=== PATIENT | female | born 1930 | race Caucasian/White ===

== ENCOUNTER → 2017-01-16 | Outpatient (REF) | payer MEDICARE ==
[~2017-01-16] MED LIST: ASPI1TAB PO; ATEN25TA PO; HYDR25TAB PO; VITA-121 PO
[2017-01-16 12:30] LABS: ALBUMIN 3.6 GM/DL (3.2-5.2); ALBUMIN/GLOBULIN RATIO 0.97 (1.00-1.93); BILIRUBIN,TOTAL 0.6 MG/DL (0.2-1.0); CALCIUM LEVEL 9.1 MG/DL (8.8-10.2); CREATININE FOR GFR 0.96 MG/DL (0.55-1.02); GLOMERULAR FILTRATION RATE 58.8 (>32); POTASSIUM SERUM 3.8 MEQ/L (3.5-5.1); TOTAL PROTEIN 7.3 GM/DL (6.4-8.2)
== END ==
LOC: M SFHCPLAZ 11:11
PROVIDERS: ATTEND Internal Medicine
DX: I10 Essential (primary) hypertension (principal); Z11.1 Encounter for screening for respiratory tuberculosis; E78.00 Pure hypercholesterolemia, unspecified

== ENCOUNTER → 2017-07-22 | Outpatient (REF) | payer MEDICARE ==
[2017-07-22 12:26] LABS: ALBUMIN 3.4 GM/DL (3.2-5.2); ALBUMIN/GLOBULIN RATIO 1.1 (1.00-1.93); BILIRUBIN,TOTAL 0.5 MG/DL (0.2-1.0); CALCIUM LEVEL 8.9 MG/DL (8.8-10.2); CREATININE FOR GFR 1.04 MG/DL (0.55-1.02); GLOMERULAR FILTRATION RATE 53.5 (>32); MAGNESIUM LEVEL 2.3 MG/DL (1.8-2.4); POTASSIUM SERUM 3.8 MEQ/L (3.5-5.1); TOTAL PROTEIN 6.5 GM/DL (6.4-8.2)
[2017-07-22 12:50] LABS: MEAN CORPUSCULAR HEMOGLOBIN 30.4 pg (27.0-33.0); MEAN CORPUSCULAR HGB CONC 32.6 g/dl (32.0-36.5); MEAN CORPUSCULAR VOLUME 93.3 fl (80.0-96.0); RED CELL DISTRIBUTION WIDTH 13.3 % (11.5-14.5); WHITE BLOOD COUNT 7.2 K/mm3 (4.0-10.0)
== END ==
LOC: M LABDRAW1 11:16
PROVIDERS: ATTEND Internal Medicine
DX: Z51.81 Encounter for therapeutic drug level monitoring (principal); Z79.899 Other long term (current) drug therapy; I10 Essential (primary) hypertension; M85.80 Other specified disorders of bone density and structure, unspecified site

== ENCOUNTER 2017-10-15 10:36 | Day surgery (SDC) | payer MEDICARE, MEDICAID ==
[~2017-10-15] VITALS: Ht 157.5 cm; Wt 62.5 kg
[~2017-10-15 10:36] MED LIST changes: -ATOR1TAB19 PO; -OCUVTAB4 PO
[2017-10-15] MEDS ORDERED: ATOR1TAB19 PO (10:51)
[2017-10-15] MEDS ORDERED: OCUVTAB4 PO (10:51)
[2017-10-15] MEDS ORDERED: fentaNYL 100 MCG/2 ML INJECTION (J3010) As Ordered ONE (17:27)
[2017-10-15] MEDS ORDERED: LIDOCAINE 2% INJ 100 MG/5 ML SDV (FOR ANES.) As Ordered ONE (17:27)
[2017-10-15] MEDS ORDERED: SUCCINYLCHOLINE 100 MG/5 ML SYRINGE (J0330) As Ordered ONE (17:27)
[2017-10-15] MEDS ORDERED: ONDANSETRON 4MG/2ML VIAL (J2405) As Ordered ONE (18:00)
[2017-10-15 20:30] VITALS: BP 138/65
--- NOTE | 2017-10-16 09:18 | ROOR ---
Patient Name: Stephanie Oneil Procedure Date: 10/15/2017 5:26 PM Date of : 1930 Age: 87 Gender: Female Note Status: Finalized Procedure: Upper GI endoscopy + Foreign Body Removal Indications: Foreign body in the esophagus Providers: Ernie Contreras MD Referring MD: 1. No Referring Physician 1. No Referring Physician, Admin. Requesting Provider: Medicines: General Anesthesia Complications: No immediate complications. Procedure: Pre-Anesthesia Assessment: - The heart rate, respiratory rate, oxygen saturations, blood pressure, adequacy of pulmonary ventilation, and response to care were monitored throughout the procedure. The Endoscope was introduced through the mouth, and advanced to the second part of duodenum. The upper GI endoscopy was accomplished without difficulty. The patient tolerated the procedure well. Findings: A natalia was found in the proximal esophagus. Removal was accomplished with a rat-toothed forceps. Two cratered esophageal ulcers with no bleeding were found 20 cm from the incisors. The exam was otherwise without abnormality. No other significant abnormalities were identified in a careful examination of the stomach. The exam of the duodenum was otherwise normal. Impression: - A natalia was found in the esophagus. Removal was successful. - Non-bleeding esophageal ulcers. - The examination was otherwise normal. Recommendation: - Discharge patient to home. - Soft diet for 2 weeks. - Continue present medications. - Return to referring physician. - The findings and recommendations were discussed with the patient's family. Ernie Contreras MD Ernie Contreras MD 10/16/2017 9:17:41 AM This report has been signed electronically. Number of Addenda: 0 Note Initiated On: 10/15/2017 5:26 PM Estimated Blood Loss: Estimated blood loss: none.
--- NOTE | 2017-10-18 16:01 | CR ---
DATE OF CONSULTATION: 10/15/2017 REASON FOR CONSULTATION: An 87-year white female who was seen in consultation from the emergency room (ER) for evaluation of esophageal foreign body. The patient apparently has dementia and so is unable to give any history. According to the patient's daughters, she has not been able to swallow fluid effectively for the last two days. She was brought to emergency room and an x-ray shows a coin which apparently is stuck in the cervical esophagus. The patient is being seen for urgent removal of the foreign body. Past medical history is positive for high blood pressure, hyperlipidemia and apparent history of Alzheimer's. MEDICATIONS: - baby aspirin 81 mg a day - atenolol 25 mg a day - atorvastatin 10o mg a day. - vitamin D3 1000 units a day - hydrochlorothiazide 25 mg a day SOCIAL HISTORY: Cigarettes, alcohol, drugs negative. ALLERGIES: No known declared allergies. REVIEW OF SYSTEMS: Noncontributory to the above problem. PHYSICAL EXAMINATION: GENERAL: Well-developed, well-nourished white female who is in no apparent acute distress. She is able to swallow her own secretions. CHEST: Clear to auscultation. CARDIOVASCULAR: Exam showed regular rhythm. No murmurs or gallops. Normal physiological split S1 to S2. ABDOMEN: Soft, nontender. No masses, guarding, rebound, hepatosplenomegaly. Bowel sounds positive. EXTREMITIES: No cyanosis, clubbing, edema. Moira's negative. ANALYSIS: Esophageal foreign body; according to chest x-ray, appears to be a coin. Plan will be to bring the patient to the operating room (OR) and have her intubated to protect her airway and try to remove the foreign body. PLAN: 1. Esophagogastroduodenoscopy (EGD) to remove foreign body.
== END 2017-10-15 20:40 | disposition home or self-care (01) ==
LOC: M ED 10:36 → M SDC 12:15
PROVIDERS: ATTEND Internal Medicine Gastroenterology
DX: R13.10 Dysphagia, unspecified (principal); T18.8XXA Foreign body in other parts of alimentary tract, initial encounter; T18.198A Other foreign object in esophagus causing other injury, initial encounter; K22.10 Ulcer of esophagus without bleeding; T18.108A Unspecified foreign body in esophagus causing other injury, initial encounter; X58.XXXA Exposure to other specified factors, initial encounter; Y92.9 Unspecified place or not applicable; Y93.9 Activity, unspecified; E78.5 Hyperlipidemia, unspecified; I10 Essential (primary) hypertension; Z79.82 Long term (current) use of aspirin; Z79.899 Other long term (current) drug therapy; Y99.9 Unspecified external cause status
CPT/HCPCS: 43247; 70360; 99284; J0330; J2405; J3010

== ENCOUNTER → 2017-10-15 | Outpatient (CLI) | payer MEDICARE ==
[~2017-10-15] MED LIST changes: +ATOR1TAB19 PO; +OCUVTAB4 PO
--- NOTE | 2017-10-15 14:32 | REP ---
Clinical: Foreign body. Technique: AP and lateral soft tissue neck. Findings: A flat rounded structure is identified within the precervical soft tissues at the C6 level likely within the esophagus and likely representing ingested coin. Correlation is required. The airway appears patent and normal. No subcutaneous emphysema. Skeletal structures demonstrate age-related degenerative change. Impression: Foreign body likely represents swallowed coin in the upper esophagus at the C6 level. Signed by Alvino Bhandari MD 10/15/2017 10:41 A
== END ==
LOC: M WUC 09:43
PROVIDERS: ATTEND Physician Assistant
DX: R13.10 Dysphagia, unspecified (principal); T18.8XXA Foreign body in other parts of alimentary tract, initial encounter; X58.XXXA Exposure to other specified factors, initial encounter; Y92.9 Unspecified place or not applicable; Y93.9 Activity, unspecified

== ENCOUNTER 2018-01-06 08:47 | Day surgery (SDC) | payer MEDICARE, MEDICAID ==
[2018-01-06] MEDS: HEALON DUET (HEALON 10MG/ML 0.55ML & HEALON ENDOCOAT 30MG/ML 0.85ML) As Ordered (07:01)
[~2018-01-06 08:47] MED LIST changes: +ACETAMINOPHEN 325 MG TAB PO; -ASPI1TAB PO; -ATEN25TA PO; -HYDR25TAB PO; +MIDAZOLAM INJ 2 MG/2 ML VIAL (J2250) As Ordered; +PHENYLEPHRINE HCL 10 % OPHTH. SOL 5ML OS; +PROPARACAINE 0.5% OPHTH SOL 15ML OS; -VITA-121 PO; +fentaNYL 100 MCG/2 ML INJECTION (J3010) As Ordered
[2018-01-06] MEDS ORDERED: CYCLOPENTOLATE 2% OPHTH SOLN 2ML BTL As Ordered (08:51)
[2018-01-06] MEDS ORDERED: PHENYLEPHRINE 2.5% OPHTH SOL 2ML As Ordered (08:51)
[2018-01-06] MEDS ORDERED: OFLOXACIN 0.3 % (OCUFLOX) OPTH SOL 5ML As Ordered (08:51)
[2018-01-06] MEDS ORDERED: TROPICAMIDE 1% OPHTH SOLN 2ML As Ordered (08:52)
[2018-01-06] MEDS: LIDOCAINE 3.5 % 1ML OPHTH TOPICAL GEL OU (09:00)
[2018-01-06] MEDS: OFLOXACIN 0.3 % (OCUFLOX) OPTH SOL 5ML OS (09:05)
[2018-01-06] MEDS: CYCLOPENTOLATE 2% OPHTH SOLN 2ML BTL OS (09:07)
[2018-01-06] MEDS: PHENYLEPHRINE 2.5% OPHTH SOL 2ML OS (09:07)
[2018-01-06] MEDS: TROPICAMIDE 1% OPHTH SOLN 2ML OS (09:07)
[2018-01-06] MEDS: POVIDONE-IODINE 5% OPHTH PREP SOL 30ML As Ordered (09:52)
[2018-01-06] MEDS: LIDOCAINE 1% SDV 5 ML VIAL As Ordered (09:53)
[2018-01-06] MEDS: BSS with VANC/TOB/EPI for EYE CASES IR (09:53)
[2018-01-06] MEDS: MOXIFLOXACIN IN BSS 0.25MG/0.25ML INTRACAMERAL INJ (OR EYE ONLY)(J2280) As Ordered (09:53)
[2018-01-06] MEDS: TRIAMCINOLONE PRES FR 40 MG/ML 1ML(TRIESENCE)(OR EYE ONLY)(J3300 PER 1MG) As Ordered (09:58)
[2018-01-06] MEDS ORDERED: KETOROLAC 0.5% OPHTH SOLN OS (11:00)
[2018-01-06] MEDS ORDERED: TRIMETHOBENZAMIDE 300 MG CAP PO (11:00)
[2018-01-06] MEDS: AcetaZOLAMIDE 500 MG ER CAP PO (11:01)
== END 2018-01-06 11:14 | disposition home or self-care (01) ==
LOC: M SDC 08:47
DX: H25.12 Age-related nuclear cataract, left eye (principal); I10 Essential (primary) hypertension; E78.00 Pure hypercholesterolemia, unspecified; F03.90 Unspecified dementia, unspecified severity, without behavioral disturbance, psychotic disturbance, mood disturbance, and anxiety; K21.9 Gastro-esophageal reflux disease without esophagitis; M54.5 Low back pain; M12.9 Arthropathy, unspecified; R32 Unspecified urinary incontinence; Z79.899 Other long term (current) drug therapy; Z79.82 Long term (current) use of aspirin; Z90.710 Acquired absence of both cervix and uterus
CPT/HCPCS: 66984

== ENCOUNTER → 2018-09-21 | Outpatient (REF) | payer MEDICARE | LOC: M SFHCPLAZ 09:00 | DX: Z51.81 Encounter for therapeutic drug level monitoring (principal); Z79.899 Other long term (current) drug therapy; I10 Essential (primary) hypertension; E78.00 Pure hypercholesterolemia, unspecified; F03.90 Unspecified dementia, unspecified severity, without behavioral disturbance, psychotic disturbance, mood disturbance, and anxiety; Z53.8 Procedure and treatment not carried out for other reasons ==

== ENCOUNTER → 2018-09-21 | Outpatient (REF) | payer MEDICARE ==
[2018-09-21 12:38] LABS: HEMATOCRIT 43.1 % (36.0-47.0); HEMOGLOBIN 14.1 g/dl (12.0-15.5); MEAN CORPUSCULAR HEMOGLOBIN 30.2 pg (27.0-33.0); MEAN CORPUSCULAR HGB CONC 32.7 g/dl (32.0-36.5); MEAN CORPUSCULAR VOLUME 92.3 fl (80.0-96.0); PLATELET COUNT, AUTOMATED 226 10^3/uL (150-450); RED BLOOD COUNT 4.67 10^6/uL (4.00-5.40); RED CELL DISTRIBUTION WIDTH 14.6 % (11.5-14.5); WHITE BLOOD COUNT 8.5 10^3/uL (4.0-10.0)
[2018-09-22 00:11] LABS: ALBUMIN 3.9 GM/DL (3.2-5.2); ALBUMIN/GLOBULIN RATIO 1.22 (1.00-1.93); ALKALINE PHOSPHATASE 96 U/L (45-117); ALT/SGPT 20 U/L (12-78); ANION GAP 6 MEQ/L (8-16); AST/SGOT 17 U/L (7-37); BILIRUBIN,TOTAL 0.9 MG/DL (0.2-1.0); BLOOD UREA NITROGEN 19 MG/DL (7-18); CALCIUM LEVEL 9.6 MG/DL (8.8-10.2); CARBON DIOXIDE LEVEL 29 MEQ/L (21-32); CHLORIDE LEVEL 109 MEQ/L (98-107); CHOLESTEROL LEVEL 149 MG/DL (<200); CHOLESTEROL RISK RATIO 3.465 (<5); CREATININE FOR GFR 1.13 MG/DL (0.55-1.30); GLOMERULAR FILTRATION RATE 48.5 (>32); GLUCOSE, FASTING 104 MG/DL (70-100); HDL CHOLESTEROL 43 MG/DL (>40); LDL CHOLESTEROL 62 MG/DL (<100); MAGNESIUM LEVEL 2.3 MG/DL (1.8-2.4); NON-HDL-C 106 MG/DL; POTASSIUM SERUM 4.3 MEQ/L (3.5-5.1); SODIUM LEVEL 144 MEQ/L (136-145); TOTAL PROTEIN 7.1 GM/DL (6.4-8.2); TRIGLYCERIDES LEVEL 222 MG/DL (<150)
== END ==
LOC: M LABDRAW1 11:58
DX: E78.00 Pure hypercholesterolemia, unspecified (principal); I10 Essential (primary) hypertension; F03.90 Unspecified dementia, unspecified severity, without behavioral disturbance, psychotic disturbance, mood disturbance, and anxiety; Z51.81 Encounter for therapeutic drug level monitoring; Z79.899 Other long term (current) drug therapy
CPT/HCPCS: 83735

== ENCOUNTER → 2019-02-16 | Outpatient (REF) | payer MEDICARE, MEDICAID, OTHER ==
[~2019-02-16] MED LIST changes: -ACETAMINOPHEN 325 MG TAB PO; +ASPI1TAB PO; +ATEN25TA PO; +ATOR1TAB19 PO; +HYDR25TAB PO; -MIDAZOLAM INJ 2 MG/2 ML VIAL (J2250) As Ordered; +MUCI600T31 PO; +OCUVTAB4 PO; -PHENYLEPHRINE HCL 10 % OPHTH. SOL 5ML OS; -PROPARACAINE 0.5% OPHTH SOL 15ML OS; +VITA-121 PO; -fentaNYL 100 MCG/2 ML INJECTION (J3010) As Ordered
[2019-02-16 16:08] LABS: HEMATOCRIT 39.7 % (36.0-47.0); HEMOGLOBIN 12.4 g/dl (12.0-15.5); MEAN CORPUSCULAR HGB CONC 31.2 g/dl (32.0-36.5); MEAN CORPUSCULAR VOLUME 95.9 fl (80.0-96.0); PLATELET COUNT, AUTOMATED 179 10^3/uL (150-450); RED BLOOD COUNT 4.14 10^6/uL (4.00-5.40); WHITE BLOOD COUNT 9.7 10^3/uL (4.0-10.0)
[2019-02-16 16:26] LABS: ALBUMIN 3.3 GM/DL (3.2-5.2); BILIRUBIN,TOTAL 1.5 MG/DL (0.2-1.0); CALCIUM LEVEL 9.2 MG/DL (8.8-10.2); CREATININE FOR GFR 1.24 MG/DL (0.55-1.30); GLOMERULAR FILTRATION RATE 43.6 (>32); MAGNESIUM LEVEL 2.6 MG/DL (1.8-2.4); POTASSIUM SERUM 4.5 MEQ/L (3.5-5.1); THYROID STIMULATING HORMONE 1.96 uIU/ML (0.358-3.740); TOTAL PROTEIN 6.4 GM/DL (6.4-8.2)
== END ==
LOC: M LABDRAW1 15:18
PROVIDERS: ATTEND Internal Medicine
DX: Z79.899 Other long term (current) drug therapy (principal); I10 Essential (primary) hypertension; F03.90 Unspecified dementia, unspecified severity, without behavioral disturbance, psychotic disturbance, mood disturbance, and anxiety

== ENCOUNTER 2019-02-20 10:17 | Inpatient (IN) | payer MEDICARE, MEDICAID ==
[~2019-02-20] VITALS: Ht 154.9 cm; Wt 66.1 kg
[~2019-02-20 10:17] MED LIST changes: -MUCI600T31 PO
[2019-02-20] MEDS ORDERED: ATROPINE SULF 1MG/10ML SYRINGE (J0461) IV STA ×3 (10:32→11:26)
[2019-02-20 10:57] LABS: BASO % 0.2 % (0.0-1.0); HEMATOCRIT 41.6 % (36.0-47.0); HEMOGLOBIN 12.8 g/dl (12.0-15.5); LYMPH # 1.2 10^3/uL (1.5-4.5); LYMPH % 9.4 % (24.0-44.0); MEAN CORPUSCULAR HEMOGLOBIN 29.6 pg (27.0-33.0); MEAN CORPUSCULAR HGB CONC 30.8 g/dl (32.0-36.5); MEAN CORPUSCULAR VOLUME 96.3 fl (80.0-96.0); MONO # 1.6 10^3/uL (0.0-0.8); MONO % 12.8 % (0.0-5.0); NEUTROPHILS # 9.8 10^3/uL (1.8-7.7); NEUTROPHILS % 77.2 % (36.0-66.0); PLATELET COUNT, AUTOMATED 166 10^3/uL (150-450); RED BLOOD COUNT 4.32 10^6/uL (4.00-5.40); WHITE BLOOD COUNT 12.7 10^3/uL (4.0-10.0)
[2019-02-20 11:01] LABS: ABG BASE EXCESS -11.4 (-2.0-2.0); ABG HCO3 11.9 MEQ/L (22.0-26.0); ABG O2 SATURATION 99.4 % (95.0-99.0); ABG PARTIAL PRESSURE CO2 21.4 mmHg (35.0-45.0); ABG PARTIAL PRESSURE O2 231.4 mmHg (75.0-100.0); ABG STANDARD HCO3 15.5 MEQ/L (22.0-26.0); ABG TOTAL CO2 12.5 MEQ/L (23.0-31.0); ABG pH (ARTERIAL) 7.362 UNITS (7.350-7.450)
[2019-02-20] MEDS ORDERED: FUROSEMIDE 40 MG/4 ML VIAL (J1940) As Ordered ONE (11:08)
[2019-02-20] MEDS ORDERED: FUROSEMIDE 40 MG/4 ML VIAL (J1940) IV ONE (11:15)
[2019-02-20 11:31] LABS: ALBUMIN 3.4 GM/DL (3.2-5.2); BILIRUBIN,DIRECT 1.2 MG/DL (0.0-0.2); BILIRUBIN,TOTAL 2.5 MG/DL (0.2-1.0); CALCIUM LEVEL 8.8 MG/DL (8.8-10.2); CREATININE FOR GFR 2.38 MG/DL (0.55-1.30); GLOMERULAR FILTRATION RATE 20.5 (>32); MB/CK RELATIVE INDEX 10.82 (< OR =4); POTASSIUM SERUM 5.1 MEQ/L (3.5-5.1); THYROID STIMULATING HORMONE 1.65 uIU/ML (0.358-3.740); TOTAL PROTEIN 6.3 GM/DL (6.4-8.2); TROPONIN I 4.48 NG/ML (< 0.10)
[2019-02-20] MEDS ORDERED: MUCI600T31 PO (12:26)
[2019-02-20] MEDS ORDERED: cefTRIAXone SOD 1 GM in D5W MINI-BAG PLUS 50 ML IV ONE (12:30)
[2019-02-20] MEDS ORDERED: MORPHINE 2 MG/ML 1ML SYRINGE (J2270) IV ONE (12:45)
--- NOTE | 2019-02-20 12:48 | REP ---
CT BRAIN WITHOUT CONTRAST: CT brain performed without IV contrast. Moderate atrophy is noted. There is no midline shift of mass effect. Patchy periventricular lucencies are compatible with small vessel ischemic changes, with asymmetric greater degree of ischemic change adjacent to the right lateral ventricle frontal horn. There is no acute intracranial hemorrhage or extra-axial fluid collection. Mild vascular calcifications are seen in the carotid siphons. The visualized paranasal sinuses and mastoid air cells are clear. IMPRESSION: Atrophy and periventricular small vessel ischemic changes. No acute intracranial hemorrhage or acute mass effect or edema. Vascular calcifications in the carotid siphons. Electronically Signed by Tanner Ryan MD 02/20/2019 06:11 P
--- NOTE | 2019-02-20 12:51 | REP ---
CHEST, PORTABLE: AP portable view of the chest is performed and compared to a prior study of 05/21/2016. There is cardiomegaly with vascular congestion and diffuse interstitial edema. There also appears to be mild scattered alveolar edema more so on the right. There is some calcification and tortuosity of the thoracic aorta. There are degenerative changes of the spine. IMPRESSION: CHF and pulmonary edema, with the diffuse edema seen to a greater extent involving the right lung compared to the left. Electronically Signed by Tanner Ryan MD 02/20/2019 06:11 P
[2019-02-20 15:46] VITALS: BP 109/51
--- NOTE | 2019-02-20 17:21 | HPE ---
DATE OF ADMISSION: 02/20/2019 CHIEF COMPLAINT: Unresponsiveness. HISTORY OF PRESENT ILLNESS: This is an 88-year-old female with past medical history of dementia who presents with a 1 day history of decreased responsiveness and lethargy. Patient's family were all at bedside and her daughter who lives with her provided most of the history. Patient at this time is not responding to provide a history. Per patient's daughter, she was minimally responsive yesterday and would not get out of bed. She called her doctor who said to give her a little bit more time and to call emergency medical service (EMS) if she does not continue to improve. Patient was the same today and was minimally responsive, would not get out of bed. Therefore, daughter called EMS. Over the last several days, she has had a cough and what appeared to be an upper respiratory infection (URI). She denies any reports of the patient complaining of chest pain or shortness of breath. In the emergency room, patient's labs were indicative of a myocardial infarction with an SD of 4.48. She had liver function tests (LFTs) that were elevated as well. She had hypernatremia with a sodium of 150 and acute kidney injury (JOE) with a creatinine of 2.38. Initially when she came in she was also quite hypoxic and was 91% on a nonrebreather which has since improved to 99% on 4 liters nasal cannula. The emergency room physician, Dr. Cerda, had a long discussion with the family who reported the patient's wishes would have been to not be aggressive with management of this heart attack. They do not want transfer to an outside hospital, cardiac catheterization, pacemaker, or any aggressive measures. Her heart rate has been in the 20s to 30s in the emergency room. They want only interventions to make the patient comfortable and treating the patient's urinary tract infection (UTI) was also acceptable. The emergency room doctor provided the patient with one dose of Lasix 40 mg IV, a dose of morphine, one dose of ceftriaxone, and a couple doses of atropine without improvement in the bradycardia. REVIEW OF SYSTEMS: Unable to obtain secondary to patient's mental status. PAST MEDICAL HISTORY: Dementia. PAST SURGICAL HISTORY: None. MEDICATIONS: The patient's home medications are: - aspirin 81 mg daily - atenolol 12.5 mg daily - guaifenesin 600 mg by mouth twice a day as needed for cough ALLERGIES: No known drug allergies. SOCIAL HISTORY: Patient currently lives with one of her daughters. She is . She has seven children. No smoking, alcohol, or drugs. FAMILY HISTORY: No family history of heart disease. PHYSICAL EXAMINATION: On exam, patient's temperature is 98.7, blood pressure 113/53, respiratory rate 22, pulse is 30, saturating 99% on 4 liters at this time. GENERAL: She is lethargic and unable to be aroused. She does not respond to her name. She occasionally moans in pain. HEENT: Neck supple. CARDIOVASCULAR: Bradycardic. LUNGS: Clear to auscultation bilaterally from the anterior aspect. ABDOMEN: Soft, nontender. EXTREMITIES: No clubbing, cyanosis, edema. SKIN: She has some abrasions on the dorsum of her bilateral feet that are scabbed. NEUROLOGIC: She is not responsive, not oriented, difficult to arouse. LABORATORY DATA: Show a chemistry with a sodium of 150, potassium of 5.1, creatinine of 2.38, AST is 957, ALT is 858, alkaline phosphatase is 202, troponin elevated to 4.48. CBC shows a white count of 12.7, hemoglobin of 12.8, platelets of 166. Urine shows 121 whites, 2+ leukocyte esterase, 3+ bacteria. IMAGING: Chest x-ray shows congestive heart failure (CHF) and pulmonary edema with diffuse edema seen to a great extent involving the right lung compared to the left. Head CT shows atrophy and periventricular small vessel ischemic disease. No acute intracranial hemorrhage or acute mass effect or edema. ASSESSMENT AND PLAN: This is an 88-year-old female with past medical history of dementia who presents with 1 day history of decreased responsiveness, found to have non-ST elevated myocardial infarction (SD) with end organ damage in multiple organs, including shock liver, acute kidney injury, and pulmonary edema. 1. Non-ST elevated myocardial infarction (NSTEMI) with end organ damage in multiple organs including acute kidney injury (JOE), shock liver, and pulmonary edema. At this time, patient's family has opted for comfort care only. They do not want aggressive therapy with cardiac catheterization or transfer to an outside hospital. They want supportive care measures only. They do not want any intervention for the bradycardia including any pacing. She did already receive two doses of atropine without improvement in the emergency room (ER). She received Lasix 40 mg IV times one to help with the pulmonary edema in the emergency room (ER). We will continue to spot dose her with Lasix as needed. I have placed comfort care orders for her and she is on IV morphine as needed. She likely does not have more than 24-48 hours to live. I have placed a social work and hospice consult for support services for this patient and their family. She will receive oxygen supplementation for comfort. She is nothing by mouth given her mental status. I explained to the family that IV fluids will not help this patient and likely make her more uncomfortable. We will not pursue further lab draws on this patient.
[2019-02-20] MEDS: MORPHINE 4 MG/ML 1ML VIAL/SYRINGE (J2270) IV PRN ×2 (19:27→22:15)
--- NOTE | 2019-02-20 20:01 | ECGEPIP ---
Stationary ECG Study [facility] - ED Test Date: 2019-02-20 Pat Name: JIGNA VILCHIS Department: Room: [place] [address] Gender: F Craft Coordinator: LISSY : 1930 Requested By: ELIZABETH Turk Order Number: [id number] Reading MD: Arvin Cano Measurements Intervals [place] Rate: 32 P: NE: 0 QRS: -64 QRSD: 117 T: 138 QT: 567 QTc: 418 Interpretive Statements ATRIAL FLUTTER/TACHYCARDIA WITH SLOW VENTRICULAR RESPONSE LOW QRS VOLTAGE IN EXTREMITY LEADS LEFT ANTERIOR FASCICULAR BLOCK ANTERIOR MYOCARDIAL INFARCTION, PROBABLY RECENT ACUTE NE Electronically Signed On 02-20-2019 20:00:47 EDT by Arvin Cano
[2019-02-21] MEDS: MORPHINE 4 MG/ML 1ML VIAL/SYRINGE (J2270) IV PRN ×6 (00:34→15:27)
[2019-02-21] MEDS ORDERED: LORazepam 1 MG TAB PO PRN (10:15)
[2019-02-21] MEDS ORDERED: SCOPOLAMINE 1MG TRANSDERMAL PATCH TOP PRN (10:15)
[2019-02-21] MEDS ORDERED: HYOSCYAMINE SULFATE 0.125 MG SUBL TABLET PO PRN (10:15)
[2019-02-21] MEDS ORDERED: MORPHINE 10MG/0.5ML ORAL CONCENTRATE SOLUTION U/D SL PRN (10:15)
[2019-02-21] MEDS ORDERED: ATROPINE SULFATE 1% OP SOLN 2 ML BTL SL PRN (10:15)
[2019-02-21] MEDS ORDERED: cefTRIAXone SOD 1 GM in D5W MINI-BAG PLUS 50 ML IV SCH (13:00)
--- NOTE | 2019-02-21 17:23 | IPNPDOC ---
Date Seen The patient was seen on 02/21/19. Progress Note Patient seen and visited at this time she is unresponsive and surrounded by family members. I did discuss with healthcare proxy the goals of care she did clearly outlined me that wishes to have the patient remained DNR/DNI and comfort measures only a new mole from was completed witnessed and signed and placed in the chart no further life-prolonging measures will be taken to usual comfort measures only orders will be entered. We'll continue to provide comfort and support to the patient's family as best possible. VS, I&O, 24H, Fishbone Vital Signs/I&O Vital Signs Date Time Temp Pulse Resp B/P (MAP) Pulse Ox O2 Delivery O2 Flow Rate FiO2 02/21/19 05:40 16 02/20/19 15:46 32 109/51 (70) 94 Nasal Cannula 4.0 02/20/19 11:11 98.7 I&O- Last 24 Hours up to 6 AM 02/21/19 06:00 Intake Total 0 ml Output Total 0 ml Balance 0 ml Laboratory Data Microbiology Microbiology 02/20/19 Urine Culture, Received Pending MADHAVI PATEL MD Feb 21, 2019 17:23
--- NOTE | 2019-02-22 08:31 | DSES ---
DATE OF ADMISSION: 02/20/2019 DATE OF : 02/21/2019 TIME OF : 5:25 p.m. CAUSE OF : Coronary artery disease. Pulmonary edema. Non-ST elevation myocardial infarction. Acute pulmonary edema in the setting of NSTEMI. Bradycardia. Metabolic encephalopathy. Dementia. Acute renal failure. Shock liver. Hypernatremia. Urinary tract infection. cardiogenic shock. HOSPITAL COURSE: The patient is an 88-year-old female with a history of dementia who presented unresponsive from home with family. Her labs were suggestive for the aforementioned problem list. 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 She was admitted to the hospitalist service and kept comfortable. She did pass on 02/21/2019 with family at the bedside. Less than 30 minutes spent organizing disposition. edited: 02/22/2019 1200 tkf MTDD
== END 2019-02-21 17:35 | disposition expired ==
LOC: EDSEX 10:17 → EDBD 10:17 → M ED 10:17 → M ED INP 13:45 → M MS4PR 17:31
PROVIDERS: ADMIT Internal Medicine; ATTEND Internal Medicine
DX: I21.4 Non-ST elevation (NSTEMI) myocardial infarction (principal); K72.00 Acute and subacute hepatic failure without coma; G93.41 Metabolic encephalopathy; J81.0 Acute pulmonary edema; N17.9 Acute kidney failure, unspecified; N39.0 Urinary tract infection, site not specified; E87.0 Hyperosmolality and hypernatremia; R00.1 Bradycardia, unspecified; Z51.5 Encounter for palliative care; F03.90 Unspecified dementia, unspecified severity, without behavioral disturbance, psychotic disturbance, mood disturbance, and anxiety; I25.10 Atherosclerotic heart disease of native coronary artery without angina pectoris; R57.0 Cardiogenic shock; Z79.82 Long term (current) use of aspirin; Z79.899 Other long term (current) drug therapy